=== PATIENT | female | born 2000 | race Hispanic/Latino ===

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

== ENCOUNTER 2024-11-04 14:20 | Emergency (ER) | payer MEDICAID ==
[~2024-11-04] VITALS: Ht 162.6 cm; Wt 67.1 kg
[~2024-11-04 14:20] MED LIST: MACR100 PO
[2024-11-04 14:22] VITALS: BP 118/76; PULSE 78; RESP 16; TEMP 99.3
== END 2024-11-04 14:30 | disposition left against medical advice (07) ==
LOC: EDH 14:20
DX: R40.0 Somnolence (principal); Z53.21 Procedure and treatment not carried out due to patient leaving prior to being seen by health care provider